=== PATIENT | female | born 1985 | race Caucasian/White ===

== ENCOUNTER 2018-09-14 10:56 | Outpatient (CLI) | payer MEDICAID ==
[~2018-09-14] VITALS: Ht 154.9 cm; Wt 116.6 kg
[2018-09-14 11:19] VITALS: Ht 154.9 cm; Wt 116.6 kg
[2018-09-14] MEDS ORDERED: PREN-6 PO (16:10)
--- NOTE | 2018-09-14 16:11 | PN ---
Triage Information Date/Time Reason for visit: IUGR Weeks of Gestation 37+ /Para n/a Diabetes: none Hypertention: none Objective Heart Rate: 140's Contractions: None Results/Medications Results 24 hrs Laboratory Tests Test 09/14/18 12:20 Membranes Rupture NEGATIVE Disposition: Discharge Assessment/Plan BPP 04/22 Doppler studies WNL No CTX +FM No LOF Discharged with precautions Questions answered Follow up with provider JACQUELIN NCIHOLE M.D. Sep 14, 2018 16:11
--- NOTE | 2018-09-14 16:20 | TRIAGE ---
OB Triage Datetime Report Generated by CPN: 09/14/2018 16:19 Datetime: 09/14/2018 14:29 Monitor Mode: External Resting Tone [place]: Relaxed Heart Rate FHR Baseline Rate: 135 Monitor Mode: External US FHR Baseline Changes: No Baseline Change Variability: Moderate 6-25 bpm Accelerations: 15X15 Decelerations: None Category: Category I Comments: NST DONE Pain Assessment Pain Presence: None/Denies Datetime: 09/14/2018 14:05 Comments: US detecting maternal HR due to maternal positioning Datetime: 09/14/2018 13:00 Monitor Mode: External Resting Tone [place]: Relaxed Heart Rate FHR Baseline Rate: 135 Monitor Mode: External US FHR Baseline Changes: No Baseline Change Variability: Moderate 6-25 bpm Accelerations: 15X15 Decelerations: None Category: Category I Pain Assessment Pain Presence: None/Denies Datetime: 09/14/2018 12:00 Assessment Type: Triage EGA: 37.4 Maternal Assessment Level of Consciousness: Fully Conscious DTR's/Clonus: DTRs 2+; No Clonus Headache: Denies Blurred Vision: No Respiratory Effort: Unlabored; Regular Rhythm; Equal Expansion Breath Sounds, Left: Clear and Equal Breath Sounds, Right: Clear and Equal Nausea/Vomiting: Denies RUQ Epigastric Pain: Denies Lower Extremities Edema: None Degree: None Upper Extremities Edema: None Degree: None Facial Edema: None Fall Risk Assessment History of Falling: (0) No Secondary Diagnosis: (0) No Ambulatory Aid: (0) Bedrest/Nurse Assist IV Therapy: (0) No Gait: (0) Normal/Bedrest/Immobile Mental Status: (0) Oriented to Own Ability Fall Score: 0 Fall Risk Score Definition: No Risk: No action required Labor Evaluation Frequency: 0 Monitor Mode: External Pattern: Normal: <= 5 Contractions in 10 Minutes Resting Tone [place]: Relaxed Contraction Comments: NONE NOTED Heart Rate FHR Baseline Rate: 140 Monitor Mode: External US Variability: Moderate 6-25 bpm Accelerations: 15X15 Decelerations: None Category: Category I Datetime: 09/14/2018 11:59 Time of Arrival: 09/14/2018 10:48 Arrived By: Ambulatory Arrived From: Office Chief Complaint: DFM Movement: Decreased Contractions: Denies/Absent Rupture of Membranes: Denies Vaginal Bleeding: None Vaginal Discharge: Denies Recent Sexual Intercouse: Denies Abdominal Trauma: Not Applicable Patient Complaints: Other Initial Plan: NST BPP AND EFW, ROM +, Doppler study Datetime: 09/14/2018 11:22 Stage of : OB Triage
== END 2018-09-14 16:19 | disposition home or self-care (01) ==
LOC: OBT 10:56 → L-D 11:18 → OBT 16:19
PROVIDERS: ATTEND Obstetrics & Gynecology
DX: O36.5930 Maternal care for other known or suspected poor fetal growth, third trimester, not applicable or unspecified (principal); Z3A.37 37 weeks gestation of pregnancy
CPT/HCPCS: 76815; 76818; 76820; 84112; Z7500; G0463

== ENCOUNTER 2018-09-24 13:15 | Inpatient (IN) | payer MEDICAID ==
[~2018-09-24] VITALS: Ht 154.9 cm; Wt 115.8 kg
[~2018-09-24 13:15] MED LIST: CEFAZOLIN 1 GM INJ ONE; PREN-6 PO
[2018-09-24 13:53] VITALS: Ht 154.9 cm; Wt 115.8 kg
[2018-09-24 13:54] VITALS: BP 106/60; PULSE 94; RESP 25
[2018-09-24] MEDS ORDERED: MISOPROSTOL 200 MCG TAB PR PRN (17:00)
[2018-09-24] MEDS ORDERED: OXYTOCIN 30 UNITS/LR 500 ML IV SCH ×2 (17:00→23:33)
[2018-09-24] MEDS ORDERED: METHYLERGONOVINE 0.2 MG INJ IM PRN (17:00)
[2018-09-24] MEDS ORDERED: OXYTOCIN 30 UNITS/LR 500 ML IV PRN (17:00)
[2018-09-24] MEDS ORDERED: CEFAZOLIN 2 GM/50 ML (PMX) 50 ML IVPB SCH (17:00)
[2018-09-24] MEDS ORDERED: CARBOPROST 250 MCG INJ IM PRN (17:00)
--- NOTE | 2018-09-24 17:02 | TRIAGE ---
OB Triage Datetime Report Generated by CPN: 09/24/2018 17:02 Datetime: 09/24/2018 16:39 Comments: EFM REAPPLIED Datetime: 09/24/2018 15:57 Comments: PT REMOVED EFM. INFORMED HER THAT I WOULD REAPPLY AFTER BRP, PT AGREED Datetime: 09/24/2018 15:28 Comments: u/s tech at bedside Datetime: 09/24/2018 14:46 Comments: REAPPLIED AFTER U/S COMPLETED Datetime: 09/24/2018 14:25 Comments: U/S TECH AT BEDSIDE Datetime: 09/24/2018 14:24 Labor Evaluation Frequency: X1 Monitor Mode: External Duration (sec)2399: 90 Quality: Mild Pattern: Normal: <= 5 Contractions in 10 Minutes Resting Tone [place]: Relaxed Heart Rate FHR Baseline Rate: 130 Monitor Mode: External US Variability: Moderate 6-25 bpm Accelerations: 15X15 Decelerations: None Category: Category I Datetime: 09/24/2018 14:17 Time of Arrival: 09/24/2018 13:05 EGA: 39.0 Arrived By: Wheelchair Arrived From: Home Chief Complaint: dfm, sore throat Movement: Decreased Contractions: Denies/Absent Rupture of Membranes: Denies Vaginal Bleeding: None Vaginal Discharge: Denies Recent Sexual Intercouse: Denies Abdominal Trauma: Not Applicable Patient Complaints: Cough Time Provider Notified: 09/24/2018 15:17 Provider Notified: ESHAGHIAN Initial Plan: NST Datetime: 09/14/2018 16:20 Time of Arrival: 09/24/2018 13:06 EGA: 39.0 Arrived By: Ambulatory Arrived From: Dr. Office Chief Complaint: decreased FM Movement: Decreased Contractions: Denies/Absent Rupture of Membranes: Denies Vaginal Discharge: Denies Recent Sexual Intercouse: Denies Abdominal Trauma: Not Applicable Patient Complaints: Other Initial Plan: BPP _ ALETHEA Datetime: 09/14/2018 12:00 EGA: 37.4 Fall Risk Assessment Fall Score: 0 Fall Risk Score Definition: No Risk: No action required
[2018-09-24] MEDS: LACTATED RINGER'S 1,000 ML IV SCH ×3 (18:29→22:16)
[2018-09-24] MEDS ORDERED: ONDANSETRON 4 MG INJ ONE (20:42)
[2018-09-24] MEDS ORDERED: CITRIC ACID/NA CITRATE 30 ML CUP ONE (20:43)
[2018-09-24] MEDS ORDERED: OXYTOCIN 10 UNIT INJ ONE (22:34)
[2018-09-24] MEDS ORDERED: FENTAnyl 50 MCG/ML VIAL ONE (22:34)
[2018-09-24] MEDS ORDERED: PHENYLephrine (100 MCG/ML) 5ML SYG ONE (22:34)
[2018-09-24] MEDS ORDERED: METOCLOPRAMIDE 10 MG INJ ONE (22:34)
[2018-09-24] MEDS ORDERED: morphine SULFATE/PF (10 MG/10 ML) INJ ONE (22:34)
[2018-09-24] MEDS ORDERED: ONDANSETRON 4 MG INJ IV PRN ×2 (23:00→23:30)
[2018-09-24] MEDS ORDERED: KETOROLAC 30 MG INJ IV PRN (23:00)
[2018-09-24] MEDS ORDERED: morphine 2 MG INJ IV PRN ×2 (23:00)
[2018-09-24] MEDS ORDERED: TRIMETHOBENZAMIDE 100 MG/ML VIAL IM PRN ×2 (23:00→23:30)
[2018-09-24] MEDS ORDERED: NALBUPHINE HCL (10 MG/1 ML) INJ IV PRN (23:00)
[2018-09-24] MEDS ORDERED: NALOXONE (0.4 MG/ML) INJ IV PRN (23:00)
[2018-09-24] MEDS ORDERED: DIPHENHYDRAMINE 50 MG INJ IV PRN ×2 (23:00→23:30)
--- NOTE | 2018-09-24 23:05 | PREOPHP ---
DATE OF ADMISSION: 09/24/2018 HISTORY OF PRESENT ILLNESS: Ms. Elise Pfeiffer is a 33-year-old 4, para 2, EDC 10/01/2018 intr auterine at 39 weeks gestational age, was sent from clinic today for decreased moveme nt. She had a biophysical profile which was 8/8; however, the lie was in transverse presentati on and after explaining the risks, benefits and alternatives, the patient agreed for a deliv betsy. Patient also reports that she is unable to flex her right hip and knees, so it would have not b een possible for her to deliver vaginally initially. Her care took place with Dr. Linton. MEDICAL HISTORY: Morbidly obese. MEDICATIONS: vitamins. PAST SURGICAL HISTORY: None. OBSTETRIC HISTORY: x2 vaginal deliveries, x1 missed AB. GYNECOLOGIC HISTORY: 10, regular 3 to 4 days. Denies any sexually transmitted disease. Sexually ac tive with 1 partner. SOCIAL HISTORY: Denies any smoking, drugs or alcohol. FAMILY HISTORY: None. REVIEW OF SYSTEMS: All within normal except history of present illness. PHYSICAL EXAMINATION: HEENT: Within normal. LUNGS: CTA bilateral. CARDIOVASCULAR: S1, S2, regular rhythm. ABDOMEN: Obese, gravid, nontender. Negative CVA bilateral. EXTREMITIES: Negative edema. No calf tenderness. Decreased range of motion of right hip and knees. PELVIC: Vaginal exam unable to perform secondary to patient unable to flex her right knee and hip. ASSESSMENT: A 33-year-old 4, para 2, intrauterine at 39 weeks gestational age, ad vanced maternal age, malpresentation, decreased range of motion of right hip and knees. PLAN: Consent for a primary . Risks, benefits and alternatives explained. All questions w ere answered. Dictated By: RODERICK RIVERO/HANNAH Conf#: [id number] DID#: [id number]
[2018-09-24] MEDS ORDERED: MEPERIDINE 25 MG INJ IV PRN (23:30)
[2018-09-24] MEDS ORDERED: ALBUTEROL 0.083% (NEB) 2.5 MG/3 ML AMP HHN PRN (23:30)
[2018-09-24] MEDS ORDERED: FENTAnyl 50 MCG/ML VIAL IV PRN ×3 (23:30)
[2018-09-24] MEDS ORDERED: IPRATROPIUM (NEB) 0.5 MG/2.5 ML AMP HHN PRN (23:30)
[2018-09-24] MEDS ORDERED: MIDAZOLAM 1 MG/ML 2 ML INJ IV PRN (23:30)
[2018-09-24] MEDS ORDERED: LABETALOL HCL 20MG INJ IV PRN (23:30)
[2018-09-24] MEDS ORDERED: hydrALAzine 20 MG INJ IV PRN (23:30)
[2018-09-24] MEDS ORDERED: HYDROmorphONE 1 MG/5 ML IV SYRINGE IV PRN ×3 (23:30)
[2018-09-24] MEDS ORDERED: EPHEDrine SULFATE 50 MG/5 ML SYG IV PRN (23:30)
--- NOTE | 2018-09-24 23:33 | OPPN ---
Date/Time of Note Date/Time of Note DATE: 09/24/18 TIME: 23:30 Operative Report Planned Procedure Procedure date Sep 24, 2018 Procedure(s) primary low transverse CD Performed by see signature line Local Flatbed Driver: HARITHA VELA MD 2nd Local Flatbed Driver none Anesthesiologist: Eric Cotto M.D. Pre-procedure diagnosis 33-year-old 4, para 2, intrauterine at 39 weeks gestational age, obese,. decrease movement, advanced maternal age, malpresentation, decreased range of motion of right hip and knees. [id number] Anesthesia Type: [id number] spinal Post-Procedure Post-procedure diagnosis same Findings A viable female apag 8/, weight 7lb 3 oz, normal uterus tubes and ovaries Estimated Blood Loss: 500 - 600 mls (500) Specimen(s) none Grafts/Implant(s) none Complication(s) none RODERICK NEGRETE MD Sep 24, 2018 23:33
[2018-09-25] MEDS ORDERED: OXYTOCIN 30 UNITS/LR 500 ML IV PRN
[2018-09-25] MEDS ORDERED: MISOPROSTOL 200 MCG TAB PR PRN
[2018-09-25] MEDS ORDERED: NACL 0.9% 3 ML SYG IV SCH
[2018-09-25] MEDS ORDERED: METHYLERGONOVINE 0.2 MG INJ IM PRN
[2018-09-25] MEDS ORDERED: CARBOPROST 250 MCG INJ IM PRN
[2018-09-25] MEDS ORDERED: OXYCODONE/ACETAMINOPHEN (5/325) TAB PO PRN
[2018-09-25 02:40] VITALS: BP 133/76; PULSE 85; RESP 18
[2018-09-25 03:40] VITALS: BP 130/73; PULSE 80; RESP 18
[2018-09-25] MEDS: IBUPROFEN 600 MG TAB PO SCH ×2 (06:00)
[2018-09-25] MEDS: CEFAZOLIN 2 GM/50 ML (PMX) 50 ML IVPB SCH ×3 (06:38→17:55)
--- NOTE | 2018-09-25 08:11 | QN ---
Documentation Comment progress note pod 1 patient seen and evaluated aao X 3 no complaints majano clear tolerating diet vs stable afebrile ab soft nt uterine fundus firm at umbilicus dressing clean and dry extremity no edema no calf tenderness a/ sp primary cd pod 1 stable afebrile p/remove dressing today encourage ambulation physical therapy RODERICK NEGRETE MD Sep 25, 2018 08:11
[2018-09-25 08:44] VITALS: BP 136/62; PULSE 93; RESP 18
--- NOTE | 2018-09-25 09:01 | OPR ---
DATE OF OPERATION: 09/24/2018 PRIMARY DIAGNOSES: A 33-year-old 4, para 2, intrauterine at 39 weeks gestational a ge, obese, decreased movement, advanced maternal age, malpresentation, decreased range of motion. POSTOPERATIVE DIAGNOSES: A 33-year-old 4, para 2, intrauterine at 39 weeks' gestat ional age, obese, decreased movement, advanced maternal age, fetus in vertex presentation, decr eased range of motion of the right hip and knees. PROCEDURE PERFORMED: Primary low transverse delivery. SURGEON: Kirby Mireles MD. GOVERNMENT SERVICE EXECUTIVE: Michael Khalil MD. ANESTHESIA: Spinal. COMPLICATIONS: None. ESTIMATED BLOOD LOSS: 500 mL. FINDINGS: A viable female, 8 and 9, respectively, at 1 and 5 minutes. Weight 7 pounds 3 ounce s. Fetus in vertex presentation. Normal uterus, tubes and ovaries. DESCRIPTION OF PROCEDURE: After explaining the risks, benefits and alternatives, the patient had con sent and signed in the chart. The patient was taken to the operating room, where spinal anesthesia w as found to be adequate. She was then prepared and draped in normal sterile fashion in dorsal supine position with a leftward tilt. A Pfannenstiel skin incision was then made with a scalpel and rhiannon d to the underlying of the fascia. The fascia was incised in the midline and incision was extended l aterally with Hatfield scissors. The superior aspect of the fascial incision was grasped with curved cla mps, elevated, and the underlying rectus muscles dissected off bluntly. Attention was then turned to the inferior aspect of the incision which, in similar, fashion was grasped, tented up with Sindhu cl amps and the rectus muscles dissected off bluntly. The rectus muscle was in midline, perit oneum identified, tented up, and sharply with Metzenbaum scissors. The peritoneal incision was exten ded superiorly and inferiorly. Good visualization of bladder. The bladder blade was then inserted a nd the vesicouterine peritoneum identified, grasped with pickups, entered sharply with Metzenbaum sci ssors. This incision was extended laterally and a bladder flap created digitally. The bladder blade was then reinserted and lower segment incised in transverse fashion with a scalpel. The uterine inc ision was extended laterally. The bladder blade was removed and the infant's head delivered atraumat kaiden. The nose and mouth were suctioned and cord clamped and cut and handed off to waiting [facility] team. The placenta was then removed. The uterus extracted of all clots and debris. The uterine incision was repaired with 1-0 chromic in a running locked fashion. A second layer of same suture wa s used for imbrication and obtained excellent hemostasis. The uterus was returned to the abdomen. T gutters were cleared of all clots. The peritoneum and rectus abdominal muscles were approximated with 2-0 Vicryl in an interrupted fashion. The fascia was reapproximated with 0 Vicryl in a running fashion. The subcutaneous tissue was reapproximated with 2-0 plain gut. The skin was closed with ab sorbable mark. The patient tolerated procedure well. All counts were correct. The patient was t aken to recovery room in stable condition. Dictated By: KIRBY RIVERO/HANNAH Conf#: [id number] DID#: [id number]
[2018-09-25] MEDS: ENOXAPARIN 40 MG/0.4 ML SYG SC SCH (11:21)
[2018-09-25 12:00] VITALS: BP 130/66; PULSE 93; RESP 22
[2018-09-25] MEDS: LACTATED RINGER'S 1,000 ML IV SCH (13:17)
[2018-09-25 15:45] VITALS: BP 121/75; PULSE 100; RESP 22
[2018-09-25] MEDS ORDERED: LANOLIN HPA 1 PKT TOP PRN ×2 (17:30)
[2018-09-25 19:45] VITALS: BP_SYST 114; BP_SYST 126; BP_DIAS 55; BP_DIAS 62; PULSE 103; PULSE 69; RESP 18
[2018-09-26 04:14] VITALS: BP 137/73; PULSE 92; RESP 18
[2018-09-26 08:30] VITALS: BP 124/66; PULSE 75; RESP 19
--- NOTE | 2018-09-26 09:14 | QN ---
Documentation Comment progress note pod 2 patient seen and evaluated aao X 3 no complaints positive ambulation and voiding tolerating diet vs stable afebrile ab soft nt uterine fundus firm at umbilicus c/d/i extremity no edema no calf tenderness a/ sp primary cd pod 2 stable afebrile p/discharge home tomorrow RODERICK NEGRETE MD Sep 26, 2018 09:14
--- NOTE | 2018-09-26 09:16 | PD.PPDC ---
IN TUBE CONVERSION TECHNICIAN Discharge Instruction Condition [id number] Patient Condition: Qznai5d Good Diet Vjheo7Hg Diet: Zowof5v Resume Regular Diet Activity/Restrictions Eqody2Md Activity: Psspx1p Normal Activity May Shower [id number] Restrictions: Qcnly1u No Exercising No Lifting No Driving No Sexual Activity Nothing in the Vagina No [place] No Tampons, douche Follow-up Follow-up with Physician: 2, Week/Weeks Return to clinic for Mobax9Fw PHOTO MASK INSPECTOR Instructions: Cmdto4b Fever greater than 101 Chills Worsening abdominal pain Excessive Vaginal Bleeding More than 2 pads per hour Unable to tolerate diet [id number] OB Instructions: Myroh5y Breast Tenderness Depression Blurried Vision Headache RODERICK NEGRETE MD Sep 26, 2018 09:16
[2018-09-26] MEDS: ENOXAPARIN 40 MG/0.4 ML SYG SC SCH (10:13)
--- NOTE | 2018-09-26 10:41 | DS ---
DATE OF ADMISSION: 09/24/2018 DATE OF DISCHARGE: 09/26/2018 PRIMARY DIAGNOSIS: A 33-year-old 4, para 2, intrauterine at 39 weeks' gestational age, obese, decreased movement, advanced maternal age, malpresentation decreased range of motion of the right hip and knee. PROCEDURE: Primary low transverse delivery. CONDITION ON DISCHARGE: Stable. ACTIVITY: None per vagina, no lifting x6 weeks. DIET: Regular. MEDICATIONS ON DISCHARGE: Motrin 800 mg p.o. q. DISCHARGE SUMMARY: Ms. Elise Pfeiffer underwent a primary delivery on 09/24/2018. She had a viable female, 8 and 9 respectively at 1 and 5 minutes, weight 7 pounds 3 ounces. She had an u neventful postop day 1 and 2. She will be discharged on postop day 3. Her incision is clean, dry, a nd intact. She is ambulating, tolerating diet, positive flatulence, positive bowel movement. She has also been seeing physical therapy for decreased range of motion of the right hip and knees. Dictated By: RODERICK RIVERO/HANNAH Conf#: [id number] DID#: [id number]
[2018-09-26] MEDS ORDERED: ACETAMINOPHEN 325 MG TAB PO PRN (12:00)
[2018-09-26] MEDS: OXYCODONE/ACETAMINOPHEN (5/325) TAB PO PRN ×2 (12:33→17:25)
[2018-09-26 15:53] VITALS: BP 114/60; PULSE 80
[2018-09-26 19:50] VITALS: BP 135/71; PULSE 87; RESP 19
[2018-09-27] MEDS: OXYCODONE/ACETAMINOPHEN (5/325) TAB PO PRN ×4 (00:06→15:57)
[2018-09-27 04:00] VITALS: BP 132/81; PULSE 86; RESP 19
[2018-09-27 08:00] VITALS: BP 123/69; PULSE 88; RESP 18
[2018-09-27] MEDS: ENOXAPARIN 40 MG/0.4 ML SYG SC SCH (09:38)
--- NOTE | 2018-09-28 07:49 | DS ---
Date/Time of Note Date/Time of Note DATE: 09/28/18 TIME: 07:41 SOAP Vital Signs Vital Signs NPASS Score-Pain: Weight Daily Weight: grams / 255.29 pounds / 4.72 ounces % weight change from I&O Intake/Output II & O 09/28/18 09/28/18 0101:00 09:00 17:00 Intake Detail Plan This is a 39 weeks gestational female who was by C/S mother was baby is doing well no fever no grunting breast fed baby P.E are normal except there was a lesion in size of ahsan on scalp posterior area chromosome study done result pending Impression 39 weeks gestational female infant scalp lesion R/O chromosome abnormality Planb discharge RTO in 3days Condition: Good NESHA ZENDEJAS MD Sep 28, 2018 07:49
--- NOTE | 2018-09-28 07:50 | DS ---
Date/Time of Note Date/Time of Note DATE: 09/28/18 TIME: 07:50 [place] SOAP Vital Signs Vital Signs NPASS Score-Pain: Weight Daily Weight: grams / 255.29 pounds / 4.72 ounces % weight change from I&O Intake/Output II & O 09/28/18 09/28/18 0101:00 09:00 17:00 Intake Detail NESHA ZENDEJAS MD Sep 28, 2018 07:50
== END 2018-09-27 17:15 | disposition home or self-care (01) | DRG 788 ==
LOC: OBT 13:15 → L-D 13:16 → OBT 16:29 → L-D 16:29 → MS1 09-25 02:32
PROVIDERS: ADMIT Obstetrics & Gynecology; ATTEND Obstetrics & Gynecology
PROC: 10D00Z1 Extraction of Products of Conception, Low, Open Approach (ICD-10-PCS; principal; 2018-09-25)
DX: O36.8130 Decreased fetal movements, third trimester, not applicable or unspecified (principal); O32.2XX0 Maternal care for transverse and oblique lie, not applicable or unspecified; O99.214 Obesity complicating childbirth; E66.01 Morbid (severe) obesity due to excess calories; O75.89 Other specified complications of labor and delivery; R29.898 Other symptoms and signs involving the musculoskeletal system; Z3A.39 39 weeks gestation of pregnancy; Z37.0 Single live birth
CPT/HCPCS: 76815; 76818; 85025; 85610; 85730; 86592; 86850; 86900; 86901; 90686; 97161; 99464; G0463; J0690; J1650; J1885; J2274; J2370; J2405; J2590; J2765; J3010; J7120